=== PATIENT | female | born 1965 | race Caucasian/White ===

== ENCOUNTER 2020-08-01 13:38 | Outpatient (CLI) | payer OTHER ==
--- NOTE | 2020-08-02 12:31 | Mammography Report ---
BILATERAL DIGITAL SCREENING MAMMOGRAM 3D/2D: 08/01/2020 CLINICAL: Routine screening. Comparison is made to exams dated: 03/31/2018 mammogram, 04/13/2017 mammogram, and 04/02/2016 mammog [facility]. There are scattered fibroglandular elements in both breasts. No significant masses, calcifications, or other findings are seen in either breast. There has been no significant interval change. IMPRESSION: NEGATIVE There is no mammographic evidence of malignancy. A 1 year screening mammogram is recommended. This exam was interpreted at Station ID: [id number]. NOTE: For mammograms, a report in lay terms will be sent to the patient. Approximately 15% of breast malignancies will not be visualized mammographically. In the management of a palpable breast mass, a negative mammogram must not discourage biopsy of a clinically suspicious lesion. Electronically Signed By: Travon Haely M.D. ar/penrad:08/01/2020 15:57:59 ACR BI-RADS Category 1: Negative 3341F PARENCHYMAL PATTERN: (A) - The breast(s) demonstrate(s) scattered fibroglandular densities. BI-RADS CATEGORY: (1) - 1 RECOMMENDATION: (ANNUAL) - Recommend routine annual screening mammography. [id number] 1 year screening LATERALITY: (B)
== END 2020-08-01 13:39 | disposition home or self-care (01) ==
LOC: DI.N 13:38
PROVIDERS: ATTEND Physician Assistant
DX: Z12.31 Encounter for screening mammogram for malignant neoplasm of breast (principal)

== ENCOUNTER 2024-03-05 14:47 | Outpatient (CLI) | payer OTHER ==
--- NOTE | 2024-03-05 21:13 | Ultrasound Report ---
PROCEDURE: Extremity Soft Tissue Limited INDICATIONS: ARM MASS TECHNIQUE: Real-time scanning was performed of the right upper arm, with image documentation. COMPARISON: None. FINDINGS: Focused ultrasound examination of distal right upper arm at patient's reported area of pal pable lump shows a 4.3 x 3.5 x 1 cm oval solid appearing nodule with similar echotexture as compared to adjacent subcutaneous fat. No significant internal vascularity. IMPRESSION: Finding may represent a lipoma in distal right upper arm measures 4.3 x 3.5 x 1 cm in si ze. Clinical and sonographic follow-up is recommended. Reviewed by: Luis Enrique Robertson MD on 03/05/2024 9:12 PM PDT Approved by: Luis Enrique Robertson MD on 03/05/2024 9:12 PM PDT Station ID: [id number]
== END 2024-03-05 14:48 | disposition home or self-care (01) ==
LOC: DI 14:47
PROVIDERS: ATTEND Physician Assistant
DX: R22.31 Localized swelling, mass and lump, right upper limb (principal)